=== PATIENT | female | born 1945 | race Caucasian/White ===

== ENCOUNTER → 2017-05-10 | Emergency (ER) | payer OTHER ==
[~2017-05-10] VITALS: Ht 160 cm; Wt 90.7 kg
[~2017-05-10] MED LIST: ALDACTONE50 MG PO; FUROSEMIDE40 MG PO; LACTULOSE10 GM/15 M; LASIX40 MG; LASIX40 MG PO; LEVOXYL50 MCG; OMEPRAZOLE10 MG; PNEU16DI2; SPIRONOLACTONE50 MG; SPIRONOLACTONE50 MG PO; XOPENEX0.63 MG/3 IH
== END | disposition home or self-care (01) ==
LOC: ER 09:33
DX: K76.89 Other specified diseases of liver (principal); R18.8 Other ascites; N39.0 Urinary tract infection, site not specified